=== PATIENT | male | born 1960 | race Caucasian/White ===

== ENCOUNTER 2017-07-03 19:04 | Emergency (ER) | payer OTHER ==
[~2017-07-03] VITALS: Ht 187.9 cm; Wt 117.9 kg
[~2017-07-03 19:04] MED LIST: FLEXERIL5 MG PO; MEDROL4 MG PO; MOTRIN600 MG PO; NKHM PO; PERCOCET 325 MG1 TA2 PO; PERCOCET 325 MG1 TA3 PO; VICODIN ES 7501 TAB PO
[2017-07-03] MEDS ORDERED: ATIVAN0.5 MG PO (19:21)
[2017-07-03] MEDS ORDERED: LISINOPRIL2.5 MG PO (19:21)
== END 2017-07-03 21:13 | disposition home or self-care (01) ==
LOC: ED 19:04
DX: M54.12 Radiculopathy, cervical region (principal); M51.36 Other intervertebral disc degeneration, lumbar region; F17.200 Nicotine dependence, unspecified, uncomplicated; I10 Essential (primary) hypertension; Z79.899 Other long term (current) drug therapy; V49.88XA Car occupant (driver) (passenger) injured in other specified transport accidents, initial encounter; Y93.89 Activity, other specified; Y92.413 State road as the place of occurrence of the external cause; Y99.9 Unspecified external cause status

== ENCOUNTER 2017-12-30 21:22 | Emergency (ER) | payer SELFPAY ==
[~2017-12-30] VITALS: Ht 187.9 cm; Wt 108.9 kg
--- NOTE | ~2017-12-30 | EKG ---
[place], [place] ELECTROCARDIOGRAM REPORT NAME: LUTHER HUDSON UNIT #: [id number] ROOM: DOCTOR: EPIPHANY DRAFT REPORT BIRTHDATE: [birth year] [facility] Test Date: 2017-12-30 Test Time: 22:16:35 Pat Name: LUTHER HUDSON Department: ER Room: Gender: Ekg Monitor Tech: Jessie Peter : 1960 Requested By: SHEYLA WALL Order Number: [id number] Reading MD: Brooklyn Bolton MD Measurements Intervals [place] Rate: 83 P: 64 PA: 153 QRS: -25 QRSD: 95 T: 21 QT: 392 QTc: 461 Interpretive Statements Sinus rhythm Normal ECG Electronically Signed On 01-01-2018 14:33:07 PST by Brooklyn Bolton MD CM:EKGRPT:ELECTROCARDIOGRAM REPORT [id number] SHEYLA WALL MD EPIPHBANNER DRAFT REPORT SHEYLA WALL MD
[~2017-12-30 21:22] MED LIST changes: +ATIVAN0.5 MG PO; +LISINOPRIL2.5 MG PO
[2017-12-30 22:23] LABS: BASO # 0.1 10*3/uL (0.0-0.1); BASO % 0.7 % (0.0-1.0); EOS # 0.2 10*3/uL (0.0-0.4); EOS % 2.3 % (1.0-4.0); HEMATOCRIT 36.4 % (42.0-52.0); HEMOGLOBIN 12.1 g/dl (14.0-18.0); LYMPH # 1.3 10*3/uL (1.3-4.4); MEAN CELL VOLUME 96.3 fl (80.0-94.0); MEAN CORPUSCULAR HGB CONC 33.2 g/dl (33.0-37.0); MEAN PLATELET VOLUME 9.2 fl (9.6-12.3); MONO # 0.6 10*3/uL (0.1-1.0); MONO % 8.4 % (3.0-9.0); NEUT # 5.5 10*3/uL (2.3-7.9); NEUT % 71.2 % (47.0-73.0); PLATELET COUNT AUTOMATED 222 10*3/uL (130-400); RED BLOOD COUNT 3.78 10*6/uL (4.50-5.90); RED CELL DISTRI WIDTH 13.2 % (0-14.5); WHITE BLOOD COUNT 7.7 10*3/uL (4.8-10.8)
[2017-12-30 22:33] LABS: ACT PARTIAL THROMBO TIME 25.1 SECONDS (20.8-31.5); INTERNATIONAL NORM RATIO 1.2 (2.0-3.5)
[2017-12-30 22:38] LABS: ALBUMIN 2.7 gm/dl (3.1-4.5); ALKALINE PHOSPHATASE 113 U/L (45-117); BUN 8 mg/dl (7-24); CHLORIDE 108 mmol/L (98-107); CREATININE 0.92 mg/dL (0.70-1.30); LIPASE 139 U/L (73-393); POTASSIUM 3.3 mmol/L (3.5-5.1); SGOT/AST 26 IU/L (3-35); SGPT/ALT 16 U/L (12-78); SODIUM 141 mmol/L (136-145); TOTAL PROTEIN 6.5 gm/dL (6.4-8.2)
[2017-12-30 23:10] LABS: BILIRUBIN NEGATIVE (NEGATIVE); BLOOD 1+ (NEGATIVE); CLARITY CLEAR (CLEAR); COLOR YELLOW (YELLOW); GLUCOSE NEGATIVE (NEGATIVE); KETONE NEGATIVE (NEGATIVE); LEUKO ESTERASE NEGATIVE (NEGATIVE); NITRITE NEGATIVE (NEGATIVE); PH 7.5 (5.0-9.0)
[2017-12-31] MEDS ORDERED: Motrin,Rufen800 MG PO (00:55)
== END 2017-12-31 02:07 | disposition home or self-care (01) ==
LOC: ED 21:22
PROVIDERS: Emergency Medicine Emergency Medical Services
DX: S86.911A Strain of unspecified muscle(s) and tendon(s) at lower leg level, right leg, initial encounter (principal); S30.811A Abrasion of abdominal wall, initial encounter; Z79.899 Other long term (current) drug therapy; V49.9XXA Car occupant (driver) (passenger) injured in unspecified traffic accident, initial encounter; Y93.89 Activity, other specified; Y92.89 Other specified places as the place of occurrence of the external cause; Y99.8 Other external cause status

== ENCOUNTER → 2019-04-05 | Day surgery (SDC) | payer OTHER ==
[~2019-04-05] VITALS: Ht 185.4 cm; Wt 113.4 kg
[~2019-04-05] MED LIST changes: +AMBIEN10 M1 PO; +ATARAX,VISTARIL50 MG PO; +Motrin,Rufen800 MG PO; +NEURONTIN100 MG PO; +ROPINIROLE HYD0.5 MG PO
[2019-04-05 08:27] VITALS: BP 149/88
[2019-04-05 09:38] VITALS: BP 129/86
[2019-04-05 09:54] VITALS: BP 117/86
[2019-04-05 10:09] VITALS: BP 122/83
[2019-04-05 11:18] LABS: BF LYMPHOCYTES 8 %; BF MACROPHAGES 11 %; BF MONOCYTES 2 %; BF NEUTROPHILS 73 %
[2019-04-06 16:07] LABS: ACID FAST SPEC PROCESSING Concentration (.)
== END | disposition home or self-care (01) ==
LOC: SDC 04-02 06:45
PROVIDERS: Internal Medicine Critical Care Medicine
DX: R91.1 Solitary pulmonary nodule (principal); J96.11 Chronic respiratory failure with hypoxia; J84.113 Idiopathic non-specific interstitial pneumonitis; I10 Essential (primary) hypertension; J44.9 Chronic obstructive pulmonary disease, unspecified; E78.00 Pure hypercholesterolemia, unspecified; M19.90 Unspecified osteoarthritis, unspecified site; E66.9 Obesity, unspecified; Z87.891 Personal history of nicotine dependence; Z98.890 Other specified postprocedural states

== ENCOUNTER → 2020-06-15 | Outpatient (CLI) | payer OTHER ==
[2020-06-15 12:46] LABS: ALBUMIN 3.2 gm/dl (3.1-4.5); BILIRUBIN, DIRECT 0.2 mg/dL (0.0-0.2); TOTAL PROTEIN 7.3 gm/dL (6.4-8.2)
== END | disposition home or self-care (01) ==
LOC: LAB 12:13
PROVIDERS: ATTEND Internal Medicine Critical Care Medicine
DX: J84.9 Interstitial pulmonary disease, unspecified (principal); Z79.899 Other long term (current) drug therapy

== ENCOUNTER 2021-04-27 22:55 | Emergency (ER) | payer OTHER ==
[~2021-04-27] VITALS: Ht 185.4 cm; Wt 111.1 kg
[2021-04-27 23:20] LABS: BASO # 0.1 10*3/uL (0.0-0.1); BASO % 0.8 % (0.0-1.0); EOS # 0.2 10*3/uL (0.0-0.4); EOS % 2.5 % (1.0-4.0); HEMATOCRIT 44.4 % (42.0-52.0); LYMPH # 2.1 10*3/uL (1.3-4.4); LYMPH % 24.6 % (27.0-41.0); MEAN CELL VOLUME 93.1 fl (80.0-94.0); MEAN CORPUSCULAR HGB 31.2 pg (27.0-31.0); MEAN CORPUSCULAR HGB CONC 33.6 g/dl (33.0-37.0); MEAN PLATELET VOLUME 9.4 fl (9.6-12.3); MONO # 0.6 10*3/uL (0.1-1.0); MONO % 7.6 % (3.0-9.0); NEUT # 5.4 10*3/uL (2.3-7.9); NEUT % 64.1 % (47.0-73.0); PLATELET COUNT AUTOMATED 168 10*3/uL (130-400); RED BLOOD COUNT 4.77 10*6/uL (4.50-5.90); RED CELL DISTRI WIDTH 14.8 % (0-14.5); WHITE BLOOD COUNT 8.4 10*3/uL (4.8-10.8)
[2021-04-27 23:31] LABS: ACT PARTIAL THROMBO TIME 27.6 SECONDS (20.0-32.1); INTERNATIONAL NORM RATIO 1.2 (2.0-3.5)
[2021-04-27 23:37] LABS: ALKALINE PHOSPHATASE 121 U/L (45-117); BUN 8 mg/dl (7-24); CHLORIDE 108 mmol/L (98-107); POTASSIUM 3.6 mmol/L (3.5-5.1); SGOT/AST 42 IU/L (3-35); SGPT/ALT 34 U/L (12-78); SODIUM 137 mmol/L (136-145); TOTAL PROTEIN 7.2 gm/dL (6.4-8.2)
== END 2021-04-28 06:03 | disposition home or self-care (01) ==
LOC: ED 22:55
PROVIDERS: Emergency Medicine
DX: R07.89 Other chest pain (principal); I10 Essential (primary) hypertension; Z98.890 Other specified postprocedural states; Z87.891 Personal history of nicotine dependence

== ENCOUNTER → 2022-12-23 | Outpatient (CLI) | payer MEDICARE | END | disposition home or self-care (01) | LOC: RAD 09:48 | PROVIDERS: ATTEND Nurse Practitioner | DX: R06.02 Shortness of breath (principal); R05.9 Cough, unspecified; Z87.09 Personal history of other diseases of the respiratory system ==

== ENCOUNTER → 2022-12-25 | Outpatient (CLI) | payer MEDICARE | END | disposition home or self-care (01) | LOC: MRI 00:24 | PROVIDERS: ATTEND Internal Medicine | DX: I67.82 Cerebral ischemia (principal); R51.9 Headache, unspecified ==

== ENCOUNTER → 2023-04-15 | Outpatient (CLI) | payer OTHER | END | disposition home or self-care (01) | LOC: CARD 11:59 | PROVIDERS: ATTEND Nurse Practitioner | DX: I08.1 Rheumatic disorders of both mitral and tricuspid valves (principal); R60.0 Localized edema; I27.20 Pulmonary hypertension, unspecified; R06.02 Shortness of breath; I10 Essential (primary) hypertension ==

== ENCOUNTER → 2023-06-02 | Outpatient (CLI) | payer OTHER ==
[~2023-06-02] MED LIST changes: +AMINOPHYLLINE 250 MG/10 ML VIAL IV ONE; +IBU800 M2 PO; -NEURONTIN100 MG PO; +NEURONTIN600 MG PO; +PROAIR DIGIHAL90 MCG INH; +Regadenoson 0.4 MG/5 ML SYR IV ONE; +Technetium Tc 99M Tetrofosmi 0.23 MG KIT IJ SCH; +ZESTRIL20 MG PO; +[UNRECOGNIZED DRUG - CODE] PO
== END | disposition home or self-care (01) ==
LOC: CARD 01:23
PROVIDERS: ATTEND Specialist
DX: Z01.818 Encounter for other preprocedural examination (principal); R06.02 Shortness of breath; R91.1 Solitary pulmonary nodule

== ENCOUNTER 2023-06-12 04:39 | Emergency (ER) | payer OTHER ==
[~2023-06-12] VITALS: Ht 167.6 cm; Wt 110.7 kg
[~2023-06-12 04:39] MED LIST changes: -AMINOPHYLLINE 250 MG/10 ML VIAL IV ONE; -Regadenoson 0.4 MG/5 ML SYR IV ONE; -Technetium Tc 99M Tetrofosmi 0.23 MG KIT IJ SCH
[2023-06-12 05:49] LABS: ALKALINE PHOSPHATASE 131 U/L (46-116); BUN 10 mg/dl (9-23); CHLORIDE 103 mmol/L (98-107); POTASSIUM 3.8 mmol/L (3.4-5.1); SGPT/ALT 15 U/L (5-49); TOTAL PROTEIN 7.8 gm/dL (6.0-8.0)
[2023-06-12 06:24] LABS: BASO # 0.1 10*3/uL (0.0-0.1); BASO % 1.2 % (0.0-1.0); EOS # 0.2 10*3/uL (0.0-0.4); EOS % 3.7 % (1.0-4.0); LYMPH # 0.7 10*3/uL (1.3-4.4); LYMPH % 17.3 % (27.0-41.0); MEAN CELL VOLUME 102.8 fl (80.0-94.0); MEAN CORPUSCULAR HGB 33.2 pg (27.0-31.0); MEAN CORPUSCULAR HGB CONC 32.3 g/dl (33.0-37.0); MEAN PLATELET VOLUME 10.3 fl (9.6-12.3); MONO # 0.3 10*3/uL (0.1-1.0); MONO % 6.9 % (3.0-9.0); NEUT # 2.8 10*3/uL (2.3-7.9); NEUT % 69.4 % (47.0-73.0); PLATELET COUNT AUTOMATED 134 10*3/uL (130-400); RED BLOOD COUNT 4.28 10*6/uL (4.50-5.90); RED CELL DISTRI WIDTH 14.8 % (0-14.5)
== END 2023-06-12 12:18 | disposition home or self-care (01) ==
LOC: ED 04:39
PROVIDERS: Emergency Medicine
DX: R09.02 Hypoxemia (principal); J84.10 Pulmonary fibrosis, unspecified; R06.02 Shortness of breath; J44.9 Chronic obstructive pulmonary disease, unspecified; F41.9 Anxiety disorder, unspecified; I10 Essential (primary) hypertension; E78.00 Pure hypercholesterolemia, unspecified; F14.10 Cocaine abuse, uncomplicated; F11.10 Opioid abuse, uncomplicated; Z96.652 Presence of left artificial knee joint; Z98.890 Other specified postprocedural states; Z72.0 Tobacco use

== ENCOUNTER 2023-07-25 12:18 | Emergency (ER) | payer OTHER ==
[2023-07-25] VITALS (7 sets, daily range): BP systolic 66–81; BP diastolic 39–50
[2023-07-25 12:52] LABS: HEMATOCRIT 30.1 % (42.0-52.0); MEAN CORPUSCULAR HGB 34.2 pg (27.0-31.0); MEAN CORPUSCULAR HGB CONC 34.9 g/dl (33.0-37.0); RED BLOOD COUNT 3.07 10*6/uL (4.50-5.90)
[2023-07-25 12:54] LABS: WHITE BLOOD COUNT 1.6 10*3/uL (4.8-10.8)
[2023-07-25 12:55] LABS: MANUAL DIFF REFLEX YES; PLATELET COUNT AUTOMATED 14 10*3/uL (130-400)
[2023-07-25 13:15] LABS: ALKALINE PHOSPHATASE 160 U/L (46-116); BUN 14 mg/dl (9-23); CHLORIDE 96 mmol/L (98-107); POTASSIUM 3.7 mmol/L (3.4-5.1); SGPT/ALT 34 U/L (5-49); TOTAL PROTEIN 7.3 gm/dL (6.0-8.0)
[2023-07-25 13:25] LABS: BASOPHILS 5 % (0-1); PLATELET SUFFICIENCY LOW (NORMAL); ROULEAUX MODERATE; TARGET CELLS FEW; TOTAL CELLS COUNTED 100 #CELLS
== END 2023-07-25 15:42 | disposition home or self-care (01) ==
LOC: ED 12:18
PROVIDERS: Emergency Medicine
DX: R53.1 Weakness (principal); D72.819 Decreased white blood cell count, unspecified; D69.6 Thrombocytopenia, unspecified; Z72.0 Tobacco use; F11.90 Opioid use, unspecified, uncomplicated; Z96.652 Presence of left artificial knee joint; Z98.890 Other specified postprocedural states

== ENCOUNTER 2023-07-27 20:28 | Emergency (ER) | payer OTHER ==
[~2023-07-27] VITALS: Ht 177.8 cm; Wt 94.3 kg
[2023-07-27 20:58] LABS: HEMATOCRIT 28.6 % (42.0-52.0); MEAN CORPUSCULAR HGB 34.2 pg (27.0-31.0); MEAN CORPUSCULAR HGB CONC 35.7 g/dl (33.0-37.0); MEAN PLATELET VOLUME 11.1 fl (9.6-12.3); RED BLOOD COUNT 2.98 10*6/uL (4.50-5.90); RED CELL DISTRI WIDTH 12.6 % (0-14.5)
[2023-07-27 21:13] LABS: ALKALINE PHOSPHATASE 171 U/L (46-116); BUN 16 mg/dl (9-23); CHLORIDE 96 mmol/L (98-107); POTASSIUM 3.8 mmol/L (3.4-5.1); SGPT/ALT 33 U/L (5-49); TOTAL PROTEIN 6.8 gm/dL (6.0-8.0)
[2023-07-27 21:19] LABS: MANUAL DIFF REFLEX YES; PLATELET COUNT AUTOMATED 28 10*3/uL (130-400); WHITE BLOOD COUNT 0.8 10*3/uL (4.8-10.8)
[2023-07-27 21:35] LABS: ATYPICAL LYMPHS 11 % (0-0); BASOPHILS 2 % (0-1); PLATELET SUFFICIENCY LOW (NORMAL); TOTAL CELLS COUNTED 100 #CELLS
[2023-07-27] MEDS ORDERED: Vancomycin Hydrochloride 250 ML IV ONE (21:50)
[2023-07-27] MEDS ORDERED: Piperacillin Sodium/Tazobact 50 ML IV ONE (21:50)
[2023-07-27] MEDS ORDERED: SODIUM CHLORIDE 0.9% 1,000 ML IV ONE (21:50)
[2023-07-27] MEDS ORDERED: MAGNESIUM SULFATE 50 ML IV ONE (22:25)
[2023-07-28] MEDS ORDERED: Piperacillin Sodium/Tazobact 50 ML IV ONE (03:30)
[2023-07-28] MEDS ORDERED: Ondansetron Hydrochloride 4 MG/2 ML VIAL IV ONE (04:55)
== END 2023-07-28 06:34 | disposition short-term general hospital (02) ==
LOC: ED 20:28
PROVIDERS: Internal Medicine
DX: J96.90 Respiratory failure, unspecified, unspecified whether with hypoxia or hypercapnia (principal); E87.8 Other disorders of electrolyte and fluid balance, not elsewhere classified; R79.89 Other specified abnormal findings of blood chemistry; D53.9 Nutritional anemia, unspecified; D70.9 Neutropenia, unspecified; R50.81 Fever presenting with conditions classified elsewhere; E43 Unspecified severe protein-calorie malnutrition; Z68.1 Body mass index [BMI] 19.9 or less, adult; D69.6 Thrombocytopenia, unspecified; C34.91 Malignant neoplasm of unspecified part of right bronchus or lung; J44.9 Chronic obstructive pulmonary disease, unspecified; I10 Essential (primary) hypertension; E78.00 Pure hypercholesterolemia, unspecified; F11.90 Opioid use, unspecified, uncomplicated; Z96.652 Presence of left artificial knee joint; Z98.890 Other specified postprocedural states; Z72.0 Tobacco use